=== PATIENT | female | born 1985 | race Caucasian/White ===

== ENCOUNTER 2025-06-28 19:44 | Emergency (ER) | payer SELFPAY ==
[~2025-06-28] VITALS: Ht 170.2 cm; Wt 66.2 kg
[2025-06-28 19:47] VITALS: TEMP 36.4; O2SAT 99
[2025-06-28] MEDS: KETOROLAC 30MG/ML VIAL IM ONE (23:16)
[2025-06-29] MEDS ORDERED: IBUP-1455 MT (00:58)
[2025-06-29] MEDS ORDERED: CEPH500T MT (00:58)
[2025-06-29] MEDS ORDERED: SULF1TAB48 MT (00:58)
[2025-06-29 01:31] VITALS: BP 122/60; PULSE 63; RESP 16; O2SAT 99
== END 2025-06-29 01:33 | disposition home or self-care (01) ==
LOC: ER 19:44
DX: L03.116 Cellulitis of left lower limb (principal); Z98.890 Other specified postprocedural states; Z79.899 Other long term (current) drug therapy
CPT/HCPCS: 99283; 96372; J1885